=== PATIENT | male | born 1965 | race Caucasian/White ===

== ENCOUNTER → 2016-06-21 | Outpatient (CLI) | payer BC ==
[~2016-06-21] VITALS: Ht 190.5 cm; Wt 103.0 kg
[~2016-06-21] MED LIST: ETODOLAC PO; FENOFIBRATE160 MG PO; JANUVIA100 MG PO; LANTUS SUBQ; LIDOCAINE5 GM TP; LIDODERM 5%1 PATC1 TRANSDERM; LIPITOR 20 MG T20 M1 PO; LISINOPRIL20 MG PO; LYRICA150 MG PO; LYRICA200 MG PO; METFORMIN HCL500 MG PO; MULTI-DAY VITA1 EACH PO; NORTRIPTYLINE H25 M3 PO; NORTRIPTYLINE H75 M1 PO; OMEPRAZOLE20 M2 PO
--- NOTE | ~2016-06-21 | HPC ---
[facility] [place] [address] PAIN MANAGEMENT CONSULTATION Name: BONG LOZA Room #: REG [facility].#: [id number] Admission: 06/21/16 Attend Phys: Troy Mendez DO Discharge: Date of : 67 Report #: [id number] THIS REPORT FOR: //name// CC: VIJAYA Mendez DATE OF SERVICE: 06/21/2016 REFERRING PHYSICIAN: Dr. Vijaya King CHIEF COMPLAINT: Right axilla pain, right hand pain, bilateral thigh pain and calf pain. HISTORY OF PRESENT ILLNESS: As you know, the patient is a 51-year-old male referred to our service by his primary care physician to discuss options for treatment for pain disorders involving right axilla, right hand, bilateral thigh and calf. We start the patient on medication therapy and adjusted his Lyrica in hopes of improving symptoms. He states that the Lyrica does provide pain relief up to 50% reducing pain from a 6/10 to a 3/10. He has started nortriptyline at 75 mg at night, but continues to experience pain in the evening hours. He is denying any side effects to the medication at this time. He returns today in followup visit for adjustments in medication management in hopes of improving pain further. ALLERGIES: No known drug allergies. CURRENT MEDICATIONS: Etodolac 300 mg once a day, Lidoderm patch applied topically 12 hours at a time, multivitamin 1 tab per day, omeprazole 20 mg per day, Lantus 25 units daily, lisinopril 20 mg once a day, atorvastatin 20 mg once a day, metformin 500 mg once a day, Januvia 100 mg once a day, fenofibrate 160 mg per day, Lyrica 300 mg twice a day. SOCIAL HISTORY: The patient continues to smoke half pack tobacco per day and has done so for 30 years. Denies IV or illicit drug use. Denies any chronic alcohol use. He is accompanied by his significant other. PHYSICAL EXAMINATION: VITAL SIGNS: Blood pressure 128/93, pulse is 89, respiratory rate 16, unlabored. The patient 98% on room air, height 6 feet 3 inches tall, weight 227 pounds, BMI calculated 28.4. GENERAL: Well developed, well nourished, well hydrated 51-year-old male appearing stated age. He is somewhat diaphoretic, placing current pain score 6/10. HEENT: Normocephalic, atraumatic. Pupils equal, round, reactive to light. Extraocular muscles are intact. [facility] [address] [place] [address] PAIN MANAGEMENT CONSULTATION Name: BONG LOZA Room #: REG [facility]#: [id number] Admission: 06/21/16 Attend Phys: Troy Mendez DO Discharge: Date of : 67 Report #: [id number] EXTREMITIES: Show no clubbing, no cyanosis, no edema. MUSCULOSKELETAL: The patient does have some tenderness to palpation again over the right shoulder, both anterior and posterior. Active and passive range of motion causes increase in shoulder pain. There is no radicular component of symptoms. Cervical provocation testing causes no change in overall pain. Spurling's test negative. Upper extremity strength appears equal and symmetrical. ASSESSMENT: 1. Chronic right shoulder pain. 2. Peripheral neuropathy. 3. Chronic intractable pain. PLAN: 1. The patient has returned today in followup visit where we have discussed the efficacy of the Lyrica 300 mg twice a day. The patient does report a 50% improvement in overall symptoms reducing pain from 11/26 to 08/26 with this therapy. I would recommend changing the dosing parameters to reduce the "rollercoaster affect." The patient as you are aware, is experiencing some pain during the daytime hours in between the dosing. We will adjust his medication to be 200 mg 3 times a day. The total 600 mg, but provided in a t.i.d. dosing, which will provide a better baseline pain control and reduce the reduction in pain noted with metabolism of the Lyrica. The patient was provided samples of the Lyrica 50 mg tablets to take 200 mg 3 times a day. I have given the patient about a week of this trial. If this is effective, he has to fill the prescription provided today, which is a 200 mg tablet 3 times a day, #90 with two refills, 3 months' worth of medication. 2. The patient will continue to increase nortriptyline. He is experiencing no side effects at this time, though he is somewhat diaphoretic today. He is unaware of whether or not this is the medication or his recent activities or whether his diabetes control is lacking. I have recommended to increase the nortriptyline until which time he receives improvement in symptoms or potential side effects. I did discuss with the patient the side effects that may occur. He will watch for any of these issues. He was given a prescription of nortriptyline 25 mg dose. He is currently taking 75 mg at night. He will increase to 100 mg for 7 days, then increase to 125 mg for seven days and 150 mg in 14 days. At any time during the titration, he notes improvement in symptoms, he is to stabilize at that dose and contact our clinic. He was given a prescription of nortriptyline #180, 25 mg tablets with two refills. 3. The patient will return to our clinic on an as needed basis. Otherwise, we will see him back in 3 months with medication management. <ELECTRONICALLY SIGNED> By: Troy Mendez DO 06/21/16 [id number] Troy Mendez DO /nt
[2016-06-21 08:15] VITALS: BP 128/93
== END | disposition home or self-care (01) ==
LOC: PAIN 03:43
DX: G62.9 Polyneuropathy, unspecified (principal); G89.29 Other chronic pain; F17.210 Nicotine dependence, cigarettes, uncomplicated